=== PATIENT | female | born 1985 | race Caucasian/White ===

== ENCOUNTER → 2017-12-01 18:00 | Observation (INO) ==
--- NOTE | 2017-12-01 17:55 | OB/GYN Progress Note ---
Date of Encounter: 12/01/17 Time of Encounter: 17:53 - Assessment and Plan (1) 37 weeks gestation of Current Visit: Yes Status: Acute (2) Decreased movement Current Visit: Yes Status: Acute Reactive NST, patient feeling good movement here in triage. Discharged home with labor and when to return to triage precautions. Patient verbalizes understanding Qualifiers: Fetus number: single or unspecified fetus Trimester: third trimester Qualified Code(s): O36.8130 - Decreased movements, third trimester, not applicable or unspecified (3) NST (non-stress test) reactive on surveillance Current Visit: Yes Status: Acute Baseline 135 Subjective - Subjective Interval history: 37+4 weeks gestation presents to triage with complaints of decreased movement and increased pelvic pressure. Patient states she usually feels very active, has not felt much movement today while working. Denies contractions, vaginal bleeding or leaking of fluid Antepartum ROS: no loss of fluid, no vaginal bleeding, no movement normal , no contractions Objective - Vital Signs Vital Signs: Intake and Output 12/01/17 12/01/17 12/01/17 07:59 15:59 23:59 Other: Weight 72.5 kg Patient Weight 12/01/17 23:59 Weight 72.5 kg - Exam FHR: auscultation normal FHR comments: Baseline 135 Abdomen: Present: soft, gravid Cervical dilation: Closed/thick/high per RN
[2017-12-01 19:14] LABS: Amphetamine Screen,Urine Negative ng/mL (Cutoff=1000); Barbiturate Screen,Urine Negative ng/mL (Cutoff=200); Benzodiazepines Screen,Urine Negative ng/mL (Cutoff=200); Cannabinoid Screen,Urine Negative ng/mL (Cutoff = 50); Cocaine Screen,Urine Negative ng/mL (Cutoff= 300); Opiate Screen,Urine Negative ng/mL (Cutoff=300); Phencyclidine Screen,Urine Negative ng/mL (Cutoff=25)
== END | disposition home or self-care (01) ==
LOC: 1NENULAB
PROVIDERS: ADMIT Obstetrics & Gynecology; ATTEND Obstetrics & Gynecology

== ENCOUNTER 2017-12-06 19:17 | Inpatient (IN) ==
[~2017-12-06 19:17] MED LIST: *HR* Nalbuphine 10 MG/ML AMPUL IVP PRN; Famotidine 20 MG/2 ML VIAL IVP PRN; Naloxone 0.4 MG/ML INJ IVP PRN; Ondansetron 4 MG/2 ML VIAL IVP PRN
[2017-12-06] MEDS ORDERED: Penicillin G Potassium 5,000,000 UNIT in 0.9 % Sodium Chloride Mini Bag 100 ML IVPB ONE (19:19)
[2017-12-06] MEDS ORDERED: miSOPROStol 25 MCG TABLET PO SCH (19:21)
[2017-12-06] MEDS ORDERED: Ringers Solution, Lactated 1,000 ML ONE (19:29)
--- NOTE | 2017-12-06 19:55 | OB/GYN History & Physical ---
Date of Encounter: 12/06/17 Time of Encounter: 19:50 Assessment and Plan (1) 38 weeks gestation of Current visit: Yes Status: Acute admitted for delivery (2) Spontaneous rupture of membranes Current visit: Yes Status: Acute admitted for delivery will augment with PO Cytotec at this time (3) Group B streptococcal infection during Current visit: Yes Status: Acute Will start GBS prophylaxis per protocol. History of Present Illness Chief complaint: SROM HPI: Ms. Jorgensen is a 32 year old female at 38w2d presents to labor and delivery with complaints of leaking fluid. Patient reports she had a small amount of leaking this morning around 0600 but she felt as though it was urine and she went to the bathroom and was able to void however, as the day went on she continued to have some leaking and between 1300 and 1700 she soaked 2 pads. Patient denies any color or odor to fluid. Patient denies contractions and reports +FM. SVE on admission was 50/-1 per RN with + nitrazine and clear fluid noted with exam. Patient denies any problems with . Blood type: O+ Rubella:Immune Hep B:Nonreactive GBS: Positive Past Med Surg Social Fam HX - Past Medical History Source: patient Medical history: non-contributory Additional medical history: kidney stone Psychiatric history: no psych history - Past Surgical History Additional surgical history: wisdom teeth - Social History Smoking Status: Never smoker Smokeless Tobacco Status: No Alcohol use: none Drug use: none Obstetrical History - Pregnancies : 1 Para: 0 Term: 0 : 0 Ab's: 0 Livin Medications and Allergies Tablet 12/01/17 [History] 3 Allergy/AdvReac Type Severity Reaction Status Date / Time No Known Allergies Allergy Verified 10/19/17 16:32 Review of System OB - Constitutional Constitutional ROS IM: no fever(s), no headache(s) - Cardiovascular Cardiovascular: no chest pain, no palpitations, no syncope - Respiratory Respiratory: no cough - Gastrointestinal Gastrointestinal: no abdominal pain, no constipation, no cramping, no diarrhea, no heartburn, no nausea, no vomiting - Genitourinary Genitourinary: vaginal discharge (Per HPI), no abnormal vaginal bleeding, no difficulty urinating, no flank pain, no urinary incontinence, no urinary urgency , no vaginal odor, no vaginal pruritis Exam - Constitutional Constitutional: well developed, well nourished, no acute distress, average body habitus - HEENT HEENT: Normocephaly, Mucus Membranes Moist - Neck Neck exam: full ROM, normal inspection, supple - Lungs Respiratory exam: CTAB - Cardiovascular Cardiovascular exam: RRR, +S1, +S2 - Abdomen Abdomen: Present: bowel sounds normal, gravid, non tender - Extremities Extremities exam: full ROM, normal inspection Deep Tendon Reflex Grade: 2+ Normal - Cervix Dilation: 1 (per RN) Effacement: 50 Station: -1 - Uterus Uterus exam: Present: normal size, normal contour - Anus/Rectum Anus/Rectum: Present: normal perianal skin - Comments Comments: FHR 145 bpm moderate variability +15x15 accels no decels noted. Cat. 1 tracing. Contractions irregular Results All other labs normal. - VTE Reasons for not Prescribing Prophylaxis: Treatment not Indicated - Low risk for VTE
[2017-12-06] MEDS ORDERED: Penicillin G Potassium 2,500,000 UNIT in 0.9 % Sodium Chloride 100 ML IVPB SCH (20:00)
[2017-12-06] MEDS: Ringers Solution, Lactated 1,000 ML IVC SCH (20:00)
[2017-12-06 20:42] LABS: Basophils % 0.3 %; Eosinophils # 0.1 K/mcL (0.0-0.6); Eosinophils % 0.7 %; Hematocrit 37.1 % (35.3-44.9); Hemoglobin 13.4 g/dL (11.5-15.4); Immature Granulocytes % 0.5 % (0-4); Lymphocytes # 2.6 K/mcL (0.6-4.6); Lymphocytes % 23.9 %; Mean Corpuscular HGB Conc 36.1 g/dL (31.6-35.5); Mean Corpuscular Hemoglobin 32.4 pg (28.0-33.3); Mean Corpuscular Volume 89.8 fL (83.0-100.0); Mean Platelet Volume 12.4 fL (9.4-12.4); Monocytes % 9.2 %; Neutrophils # 7.2 K/mcL (1.6-8.9); Platelet Count 224 K/mcL (140-400); Red Blood Count 4.13 M/mcL (3.82-4.97); Red Cell Distribution Width 12.7 % (11.5-14.5); Segmented Neutrophils % 65.4 %
[2017-12-06 20:57] LABS: Amphetamine Screen,Urine Negative ng/mL (Cutoff=1000); Barbiturate Screen,Urine Negative ng/mL (Cutoff=200); Benzodiazepines Screen,Urine Negative ng/mL (Cutoff=200); Cannabinoid Screen,Urine Negative ng/mL (Cutoff = 50); Cocaine Screen,Urine Negative ng/mL (Cutoff= 300); Opiate Screen,Urine Negative ng/mL (Cutoff=300); Phencyclidine Screen,Urine Negative ng/mL (Cutoff=25)
--- NOTE | 2017-12-06 23:10 | OB Labor Progress Note ---
Date of Encounter: 12/06/17 Time of Encounter: 23:07 Labor Progress Note - Subjective Subjective: Patient reports contractions are getting more intense and she would like pain medication or epidural. Patient requesting to be checked at this time. - Cervix Cervix: 3/90/0 - Heart Tones Heart Tones: 140 bpm moderate variability +15x15 accels no decels noted. Cat. 1 tracing. - Seat Pleasant Seat Pleasant: 1-3 min apart - Interventions Interventions: SVE, IUPC placed without difficulty patient tolerated well. - Plan Plan: Continue labor management. Patient may have Nubain or epidural when she desires.
[2017-12-06] MEDS ORDERED: Epidural Premix (fent/bupiv) 110 ML EP SCH (23:45)
[2017-12-06] MEDS ORDERED: Lidocaine -MPF 1% 5 ML AMPUL ONE (23:51)
--- NOTE | 2017-12-07 00:35 | Anesthesia Evaluation PreOp ---
Date of Encounter: 12/07/17 Time of Encounter: 23:55 - Past History Planned Operation: herbert Cardiac History: Denies any Significant Hx Pulmonary History: Denies Any Significant HX H[employer] History: Denies Any Significant HX Other Medical History: Denies Any Significant HX Anesthesia History: No Prior Anesthetic Complications : Yes Test: Positive Alcohol Use: none Drug use: none Medications and Allergies Tablet 12/01/17 [History] 3 Allergy/AdvReac Type Severity Reaction Status Date / Time No Known Allergies Allergy Verified 10/19/17 16:32 - Meds/Allergy Pre-op Review Medications Reviewed: Yes Allergies Reviewed: Yes Beta Blockers on Current Med List: No Anesthesia Results - Labs 12/06/17 19:18 Anesthesia Exam - HEENT Pupil (Motor): Pupils equal Mallampati: II Teeth: Normal Oral Opening: Greater than 3 - H[employer] LOC: Oriented [employer] Motor: Normal RUE, Normal LUE, Normal RLE, Normal LLE, Normal Face H[employer] Sensory: Normal: RUE, LUE, RLE, LLE, Face - Cardiac Rhythm: Regular Murmur: None JVD: No Carotid Bruit: No - Pulmonary Breath Sounds: bilateral Clear Respiratory Effort: Symmetrical Anesthesia Assess/Plan ASA Score: 1 Modified Union Scale for Level of Consciousness: Cooperative, oriented, and tranquil Anesthetic Plan: Regional Autologous Blood: No Monitoring Plan: Standard Monitors
--- NOTE | 2017-12-07 00:39 | Anesthesia Procedures ---
Date of Encounter: 12/07/17 Time of Encounter: 23:55 Procedures: Anesthesia - Epidural/Spinal Patient ID/Chart reviewed: Yes Patient examined: Yes OB Eval: Gestational age: 38.2 OB Eval: : 1 OB Eval: Hx Para: 0 OB Eval: Dilated at (cm): 3 OB Eval: Contractions: Non-stressed pattern Consent Obtained: Yes Site Prep: Aseptic Technique, Sterile prep and drape, Povidone-Iodine 1% Patient position: upright Amount of Local Anesthetic used: 3 Touhy Needle Gauge: 18 Touhy Needle Depth (cm): 4 Catheter Depth at Skin (cm): 8 Test Dose (1.5% Lido + Epi): Volume given (mls): 3 Test Dose Result: Negative Loading Dose: 0.25% Marcaine (mls): 10 Loading Dose Administered: Thru Catheter Infusion Rate (mls/hr): [address]: Tegaderm, Tape Interspace Used: L3-L4 Loss of Resistance (BRENDAN): Yes Blood: No CSF: No Paresthesia: No Procedure: moderate difficulty placing epidural. first attempt L3-4 non successful. second attempt successful at L4-5. Vitals + FHT's: stable throughout see nursing notes
[2017-12-07] MEDS: Ringers Solution, Lactated 1,000 ML IVC SCH (03:18)
--- NOTE | 2017-12-07 06:25 | OB/GYN Procedure Note ---
Delivery - Delivery Date: 12/07/17 Provider: Michelle Bell Intrapartum events: none Delivery induction: none Delivery monitor: external FHT, external uterine Anesthesia: epidural Quantitated Blood Loss: 200 - (s) Infant A Delivery Date: 12/07/17 Infant Delivery Time: 05:53 Presentation: vertex Position: ITALIA Route of delivery: Gender: Female Viability: Viable Pounds: 7 Ounces: 5 Weight Gram: 3320 kg at 1 minute: 8 at 5 mins: 9 Shoulder Dystocia: not encountered Specimens collected: cord blood Placenta: spontaneous, uterine exploration Cord: nuchal cord (X1 easily reduced), 3 umbilical vessels, nuchal reduced - Repair Episiotomy: none Laceration Description: Superficial (left vaginal wall, 1 stich with 4-0 vicryl) - Complications Delivery complications: none - Disposition Mom disposition: stable in LDR [place] disposition: stable in LDR - Comments Comments: Called to LDR, patient in stirrups and prepped for vaginal delivery. Under maternal effort patient spontaneously delivered a viable female infant. A nuchal cord x1 was noted and easily reduced. No shoulder dystocia or meconium was encountered. was placed on maternal abdomen. Cord was clamped and cut. Cord blood was collected. A small superficial laceration was noted on the left vaginal wall. 1 stitch was placed with 4-0 vicryly to stop bleeding. Placenta delivered spontaneously and intact. Pericare provided, all counts correct. Both mother and infant stable in LDR for 2 hour recovery.
[2017-12-07] MEDS ORDERED: Oxytocin 20 units/ LR 1000 mL 20 UNIT/1,000 ML BAG IVC ONE (07:33)
[2017-12-07] MEDS ORDERED: Measles/Mumps/Rubella Vacc 0.5 ML VIAL SQ PRN (07:54)
[2017-12-07] MEDS ORDERED: Benzocaine/Menthol 56 GM AEROSOL SPRAY TP PRN (07:54)
[2017-12-07] MEDS ORDERED: Oxytocin 20 units/ LR 1000 mL 20 UNIT/1,000 ML BAG IVC SCH (07:54)
[2017-12-07] MEDS ORDERED: Acetaminophen 325 MG TABLET PO PRN (07:54)
[2017-12-07] MEDS ORDERED: Lanolin 7 G OINT...G. TP PRN (07:54)
[2017-12-07] MEDS: Ibuprofen 600 MG TABLET PO PRN ×2 (09:29→16:28)
[2017-12-07] MEDS: Prenatal Vit/FA 1 EACH TABLET PO SCH (09:30)
--- NOTE | 2017-12-07 16:36 | OB/GYN History & Physical ---
Date of Encounter: 12/07/17 Time of Encounter: 16:31 Assessment and Plan (1) Back pain Current visit: Yes Status: Acute 1. Consent was gained from patient to perform osteopathic manipulative therapy in the presence of SUSI Pavon and specific therapy procedures were explained in detail. The patient was encouraged to ask any questions she may have and to state any discomfort that she may experience during therapy. 2.The patient was treated with gentle osteopathic manipulative therapy to the cervicothoracic junction using inhibition technique to the paraspinal musculature at the C7-T1 vertebral level, as well as to the upper portion of the trapezius muscle. 3. Suboccipital release was applied for approximately 3-5 minutes. Patient tolerated all therapy well. When asked about her pain levels before and after therapy, the patient stated that if her pain were 10 out of 10 prior to therapy that it was now a 2 out of 10. Patient was informed to avoid any strenuous motions and informed of my intent to reassess her back pain later this evening. Patient verbalized understanding and agreement with this plan. Qualifiers: Back pain location: thoracic back pain Chronicity: acute Back pain laterality: bilateral Qualified Code(s): M54.6 - Pain in thoracic spine History of Present Illness Chief complaint: Back pain HPI: Ms. Jorgensen is a 32 year old female S/P vaginal delivery today on 12/07/2017. Patient is currently complaining of moderate level, sharp back pain with radiation from the cervicothoracic junction into the neck and bilateral upper extremities. Patient states that she has a positive history of cervical and upper thoracic pain which she believes this was exacerbated by delivery of the infant as well as playing "tug-of-war" during her delivery. 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 Review of systems: The patient denies chest pain, shortness of breath or difficulty with ambulation Exam: Patient is alert and oriented, sitting upright in hospital bed, in no acute distress. Patient is engaged to conversation, pleasant, and mood and affect appear normal. Speech is fluid and answers questions appropriately. Patient is nondiaphoretic, without pallor, there is no accessory muscle use or prolonged expiratory phase. Patient is nontachypneic. -Bilateral swelling noted in hands, without pitting. Patient states that this has been consistent throughout her . Tinnel's test as well as direct pressure applied to the median nerve at the wrist were negative to reproduce or worsen paresthesias. Past Med Surg Social Fam HX - Past Medical History Medical history: non-contributory Additional medical history: kidney stone Psychiatric history: no psych history - Past Surgical History Surgical History: non-contributory Additional surgical history: wisdom teeth - Social History Smoking Status: Never smoker Smokeless Tobacco Status: No Alcohol use: none Drug use: none - Family History Mother Adopted: No Family Member Ethnicity: Non- Living Status: Still Living Hx Family Cardiac Disorders: No Hx Family Respiratory Disorders: No Hx Family Cancer: No Hx Family GI Disorders: No Hx Family Genitourinary Disorders: No Hx Family Endocrine Disorder: No Hx Family Musculoskeletal Disorders: No Hx Family Neuromuscular Disorders: No Hx Family Neurologic Disorders: No Hx Family HEENT Disorders: No Hx Family Autoimmune Disorders: No Hx Family Reproductive Disorders: No Hx Family Psychosocial Disorders: No Hx Family Medical Disorders: (MV regerd, diverticulitis) Obstetrical History - Pregnancies : 1 Para: 1 Medications and Allergies Tablet 12/01/17 [History] 3 Allergy/AdvReac Type Severity Reaction Status Date / Time No Known Allergies Allergy Verified 10/19/17 16:32 Review of System OB All systems PM: reviewed and no additional remarkable complaints except as stated - Cardiovascular Cardiovascular: no chest pain, no dyspnea - Respiratory Respiratory: no dyspnea - Muscloskeletal Musculoskeletal: back pain, neck pain, radiating pain into limb, stiffness, tingling Musculoskeletal: bilateral: hand swelling Exam - Vital Signs Vital signs: Initial Vital Signs Temp Pulse Resp BP Pulse Ox 98.2 F 92 16 111/73 100 12/07/17 08:45 12/07/17 08:45 12/07/17 08:45 12/07/17 08:45 12/07/17 08:45 - Constitutional Constitutional: well developed, well nourished, no acute distress, average body habitus - HEENT HEENT: EOMI, PERRL, Normocephaly, Mucus Membranes Moist - Neck Neck exam: trachea midline Results Result Diagrams: 12/06/17 19:18 Abnormal lab results MCHC 36.1 g/dL (31.6-35.5) H 12/06/17 19:18 All other labs normal. - VTE Reasons for not Prescribing Prophylaxis: Treatment not Indicated - Low risk for VTE
[2017-12-07] MEDS ORDERED: *HR* HYDROcodone/Acet 5/325 mg TABLET PO ONE (18:14)
[2017-12-08] MEDS ORDERED: *HR* HYDROcodone/Acet 5/325 mg TABLET PO ONE (04:59)
[2017-12-08] MEDS ORDERED: Ondansetron ODT 4 MG TAB.RAPDIS SL ONE (05:12)
[2017-12-08 07:57] VITALS: BP 104/66
[2017-12-08] MEDS: Ibuprofen 600 MG TABLET PO PRN (08:12)
[2017-12-08] MEDS: Prenatal Vit/FA 1 EACH TABLET PO SCH (08:13)
--- NOTE | 2017-12-08 09:17 | Discharge Summary ---
Date of Encounter: 12/08/17 Time of Encounter: 09:13 - Discharge Diagnosis (1) Vaginal delivery Priority: Primary Status: Acute Comments: S/P vaginal delivery day 1 VSS Pain is well controlled Lochia is light and without clots Voiding without difficulty and passing flatus Bottle feeding Discharge home today (2) Back pain Priority: Secondary Status: Acute Comments: Discussed use of heat and cold application. Encouraged chiropractic appointment and massage. Follow up with PCP if no relief from aforementioned. Qualifiers: Back pain location: thoracic back pain Chronicity: acute Back pain laterality: bilateral Qualified Code(s): M54.6 - Pain in thoracic spine - Discharge Medications Prescriptions: Ibuprofen [Motrin] 600 mg PO Q6HR PRN #30 tablet PRN Reason: Cramping Docusate [Colace] 100 mg PO BID #20 capsule Home Medications: Tablet 12/01/17 [History] Acetaminophen [Tylenol] 650 mg PO Q6HR PRN tablet 12/08/17 [Rx] Benzocaine/Menthol [place] [Dermoplast [place]] 1 appl TP QID PRN aerosol 12/08/17 [Rx] Docusate [Colace] 100 mg PO BID #20 capsule 12/08/17 [Rx] Ibuprofen [Motrin] 600 mg PO Q6HR PRN #30 tablet 12/08/17 [Rx] Allergies/Adverse Reactions: 3 Allergy/AdvReac Type Severity Reaction Status Date / Time No Known Allergies Allergy Verified 10/19/17 16:32 Data Procedures and tests throughout hospitalization: Laboratory Tests 12/06/17 12/06/17 12/08/17 19:17 19:18 04:56 WBC 11.0 RBC 4.13 Hgb 13.4 Hct 37.1 MCV 89.8 MCH 32.4 MCHC 36.1 H RDW 12.7 Plt Count 224 MPV 12.4 Immature Gran % 0.5 Seg Neutrophils % 65.4 Lymphocytes % 23.9 Monocytes % 9.2 Eosinophils % 0.7 Basophils % 0.3 Neutrophils # 7.2 Lymphocytes # 2.6 Monocytes # 1.0 Eosinophils # 0.1 Basophils # 0.0 POC Glucose 96 Urine Opiates Screen Negative Ur Barbiturates Screen Negative Ur Phencyclidine Scrn Negative Ur Amphetamines Screen Negative U Benzodiazepines Scrn Negative Urine Cocaine Screen Negative U Marijuana (THC) Screen Negative Ur Drug Screen Interp See Below Labs on day of discharge: Labs from last 24 hours 12/08/17 04:56 POC Glucose 96 Date of admission: 12/06/17 19:17 Consults: 12/07/17 07:54 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 [employer] G[employer] [CONS] Routine Comment: Vaginal delivery, consult needed Discharging clinician: Sahra Cruz Anticipated date of discharge: 12/08/17 - Patient Status Disposition: Home, Self-Care Condition: Good Functional capacity at discharge: independent ambulation Overall status at discharge: patient is progressing back to baseline - Discharge Instructions Follow Up With: Johanny Randall DO [Partnered Physician] - - Diet and Activity Activity: increase activity as tolerated Diet: regular diet Hospital Course Reason for admission: IUP at term Delivery: Episiotomy: none Laceration: other (superficial) Other procedures: none complications: none Discharge diagnosis: IUP at term delivered baby: female Time Attestation: Total time spent providing and/or coordinating discharge services: Time Spent: Less than 30 minutes Exam - Constitutional Vitals: Temp Pulse Resp BP Pulse Ox 97.8 F 70 16 104/66 97 12/08/17 07:56 12/08/17 07:56 12/08/17 08:19 12/08/17 07:56 12/08/17 04:50 General appearance IM: cooperative, A&O X 3, pleasant - Respiratory Respiratory exam: Present: CTAB - Cardiovascular Cardiovascular exam IM: Present: RRR, +S1, +S2 - GI/Abdominal GI/Abdominal exam IM: normal bowel sounds, soft, no peritoneal signs - Rectal Rectal exam: deferred - Uterine Tone: Firm Uterus Position: At Umbilicus, Midline - Extremities Exam Extremities exam IM: Present: normal capillary refill, normal inspection, radial pulses palpable and symmetrical - Neurological Exam Neurological exam: alert, oriented X3
--- NOTE | 2017-12-08 13:46 | Anesthesia Progress Note ---
Date of Encounter: 12/08/17 Time of Encounter: 13:40 Anesthesia Note - Note Note: consulted to room for c/o stiff neck states right side of neck is hurting. no complaints of headache. no visual disturbances. resting quietly in semifowler position. family states she has been up walking with no complaints of headache. current pain most likely r/t labor strain 12/08/17 13:40
== END 2017-12-08 12:00 | disposition home or self-care (01) | DRG 768 ==
LOC: 1NENULAB → 1NENUOBS 12-07 08:22
PROVIDERS: ADMIT Advanced Practice Midwife; ATTEND Advanced Practice Midwife

== ENCOUNTER → 2019-10-11 19:38 | Observation (INO) | END | disposition home or self-care (01) | LOC: 1NENULAB | PROVIDERS: ADMIT Obstetrics & Gynecology; ATTEND Obstetrics & Gynecology ==